=== PATIENT | female | born 1985 | race Caucasian/White ===

== ENCOUNTER 2023-01-23 19:08 | Emergency (ER) | payer OTHER ==
[2023-01-23 19:37] VITALS: BP 140/95; PULSE 100; RESP 18; TEMP 99; BMI 37.4
[2023-01-23] MEDS ORDERED: ONDANSETRON 4 MG/2 ML VIAL IVPB ONE (20:19)
[2023-01-23] MEDS ORDERED: SODIUM CHLORIDE 0.9% 1000 ML INFUS.BAG IV ONE (20:25)
[2023-01-23] MEDS ORDERED: ACETAMINOPHEN 1000 MG/100 ML BAG IVPB ONE (20:25)
[2023-01-23] MEDS ORDERED: ONDANSETRON 4 MG/2 ML VIAL ONE (20:33)
[2023-01-23] MEDS ORDERED: ACETAMINOPHEN INJECTION 100 ML IVPB ONE (20:33)
[2023-01-23 20:48] LABS: BASO % 0.3 % (0-2.0); HEMATOCRIT 43.8 % (32.4-45.2); HEMOGLOBIN 14.9 GM/dL (10.7-15.3); LYMPH % 10.9 % (8-40); MCH 30.4 pg (25.7-33.7); MCHC 33.9 g/dl (32.0-36.0); MEAN CELL VOLUME 89.8 fl (80-96); MEAN PLT VOLUME 7.8 fl (7.5-11.1); NEUT % 83.8 % (42.8-82.8); PLATELET COUNT 427 10^3/uL (134-434); RBC 4.88 M/mm3 (3.60-5.2); RDW 13.5 % (11.6-15.6); WHITE BLOOD COUNT 16.3 K/mm3 (4.0-10.0)
[2023-01-23 21:13] LABS: POTASSIUM 4.1 mmol/L (3.5-5.1)
[2023-01-23 21:16] LABS: ALBUMIN 4.3 g/dl (3.4-5.0); BLOOD UREA NITROGEN 11.6 mg/dL (7-18); CALCIUM 9.8 mg/dL (8.5-10.1)
[2023-01-23 21:19] LABS: CREATININE 0.8 mg/dL (0.55-1.3)
[2023-01-23 21:20] LABS: TOT PROT 8.6 g/dl (6.4-8.2)
[2023-01-23 21:21] LABS: BILIRUBIN,TOTAL 0.7 mg/dL (0.2-1)
[2023-01-23 23:34] LABS: PH,URINE 5.5 (5.0-8.0); URINE APPEARANCE CLOUDY; URINE BILIRUBIN NEGATIVE (NEGATIVE); URINE COLOR YELLOW; URINE GLUCOSE (UA) NEGATIVE (NEGATIVE); URINE KETONE 4+ (NEGATIVE); URINE LEUK ESTERASE NEGATIVE (NEGATIVE); URINE NITRITE NEGATIVE (NEGATIVE); URINE PROTEIN TRACE (NEGATIVE); URINE UROBILINOGEN 0.2 mg/dL (0.2-1.0)
[2023-01-23] MEDS ORDERED: PROMETHAZINE HCL 25 MG/1 ML VIAL IVPB ONE (23:39)
[2023-01-23] MEDS ORDERED: PROMETHAZINE HCL 25 MG/1 ML VIAL ONE (23:44)
== END 2023-01-24 01:40 | disposition home or self-care (01) ==
LOC: JER 19:08
PROC: 3E033GC Introduction of Other Therapeutic Substance into Peripheral Vein, Percutaneous Approach (ICD-10-PCS; principal; 2023-01-23)
PROC: 3E033GC Introduction of Other Therapeutic Substance into Peripheral Vein, Percutaneous Approach (ICD-10-PCS; 2023-01-23)
DX: R11.2 Nausea with vomiting, unspecified (principal); E86.0 Dehydration
CPT/HCPCS: 36415; 76705-TC; 80053; 81003; 82150; 83690; 84703; 85025; 87086; 99284-25